=== PATIENT | male | born 1960 | race Two or more races ===

== ENCOUNTER 2024-08-10 22:24 | Inpatient (IN) | payer OTHER, MEDICAID ==
[~2024-08-10] VITALS: Ht 182.9 cm; Wt 90.1 kg
[~2024-08-10 22:24] MED LIST: AMLO1TAB23 PO; ASPI325T6 PO; ATOR80TA PO; CLON0.1T PO; CLOP75TA70 PO; HYDR25TA88 PO; LISI40TA16 PO; OMEP-448 PO
[2024-08-10 23:03] LABS: Basophils # (auto) 0 10 ^3/uL (0-0.2); Basophils % (auto) 0.6 % (0.0-2.0); Eosinophils # (auto) 0.1 10 ^3/uL (0-0.8); Eosinophils % (auto) 1.6 % (0.0-7.0); Hematocrit 36.2 % (41.0-53.0); Hemoglobin 12.1 g/dL (13.5-17.5); Lymphocytes # (auto) 1.9 10 ^3/uL (0.4-5.4); Lymphocytes % (auto) 28.4 % (10.0-50.0); Mean Corpuscular Hemoglobin 29.5 pg (28.0-32.0); Mean Corpuscular Hgb Conc. 33.4 g/dL (32.0-36.0); Mean Corpuscular Volume 88.5 fL (80.0-100.0); Monocytes # (auto) 0.4 10 ^3/uL (0-1.3); Monocytes % (auto) 6.8 % (0.0-12.0); Neutrophils # (auto) 4.1 10 ^3/uL (1.6-8.6); Neutrophils % (auto) 62.6 % (37.0-80.0); Nucleated Red Blood Cells % 0.2 %; Platelet Count (auto) 208 10^3/uL (140-450); Red Blood Cells 4.09 10^6/uL (4.5-5.90); Red Cell Distribution Width 14.5 % (11.8-14.3); White Blood Cell 6.6 10^3/uL (4.4-10.8)
[2024-08-10 23:20] LABS: Alanine Aminotransferase 23 U/L (7-40); Albumin 4.2 g/dL (3.2-4.8); Alkaline Phosphatase 92 U/L (46-116); Anion Gap 8 (5-15); Aspartate Aminotransferase 19 U/L (13-40); Calcium 9.4 mg/dL (8.7-10.4); Carbon Dioxide 22 mmol/L (20-30); Chloride 104 mmol/L (98-107); Glucose 309 mg/dL (74-106); Potassium 3.7 mmol/L (3.5-5.1); Sodium 134 mmol/L (136-145)
[2024-08-10 23:21] LABS: Bilirubin, Total 0.3 mg/dL (0.2-1.0); Total Protein 7.2 g/dL (5.7-8.2)
[2024-08-10 23:29] LABS: BUN/Creatinine Ratio 13.4 (10.0-20.0); Blood Urea Nitrogen 16 mg/dL (9-23)
[2024-08-10 23:47] VITALS: PULSE 72; RESP 14; O2SAT 94
[2024-08-11] VITALS (7 sets, daily range): BP systolic 168–184; BP diastolic 76–101; PULSE 58–86; RESP 14–20; TEMP 97.8–98.1; O2SAT 96–98
[2024-08-11] MEDS: InsuLIN REG 1unit/0.01ml Soln (100units/ml) IV ONE (00:23)
[2024-08-11] MEDS: NITROGLYCERIN 2% OINT 1GM PKG TD ONE (02:15)
[2024-08-11] MEDS ORDERED: MORPHINE SULFATE INJ 2 MG/ml SYRG IV PRN (10:00)
[2024-08-11] MEDS ORDERED: DEXTROSE (50%) 50ML SYRG IV PRN (10:00)
[2024-08-11] MEDS ORDERED: NITROGLYCERIN 0.4 MG SL TAB SL PRN ×2 (10:00)
[2024-08-11] MEDS ORDERED: ACETAMINOPHEN 325 MG TAB PO PRN (10:00)
[2024-08-11] MEDS ORDERED: ONDANSETRON HCL 4 MG/2 ML VIAL IV PRN (10:00)
[2024-08-11 11:18] LABS: INR 1.05 (0.9-1.15); Prothrombin Time 11.1 sec (9.3-11.8)
[2024-08-11] MEDS: InsuLIN REG 1unit/0.01ml Soln (100units/ml) SC SCH (11:41)
[2024-08-11] MEDS: ACCU-CHEK COMFORT CURVE STRIP VI SCH (11:43)
[2024-08-11] MEDS: DOCUSATE SOD 100 MG CAP PO SCH (11:45)
[2024-08-11] MEDS: ASPirin 81 mg TAB PO SCH (11:45)
[2024-08-11] MEDS: METOPROLOL TARTRATE 25 MG TAB PO SCH (12:55)
[2024-08-11] MEDS: hydrALAZINE HCL 20 MG/ML VL IV ONE (15:01)
[2024-08-11] MEDS ORDERED: METF-370 PO (17:55)
[2024-08-11] MEDS ORDERED: AMLO1TAB22 PO (17:55)
[2024-08-11] MEDS: ATORVASTATIN 20 MG TAB PO SCH (21:10)
[2024-08-11] MEDS: ENOXAPARIN SOD 120 MG/0.8 ML SYRINGE SC SCH (21:15)
[2024-08-12] VITALS (7 sets, daily range): BP systolic 138–178; BP diastolic 74–88; PULSE 53–97; RESP 16–20; TEMP 97.7–98.9; O2SAT 96–99
[2024-08-12] MEDS: LISINOPRIL 20 MG TAB PO ONE (01:04)
[2024-08-12 07:00] LABS: Basophils # (auto) 0.1 10 ^3/uL (0-0.2); Basophils % (auto) 0.7 % (0.0-2.0); Eosinophils # (auto) 0.1 10 ^3/uL (0-0.8); Eosinophils % (auto) 1.8 % (0.0-7.0); Hematocrit 40.4 % (41.0-53.0); Hemoglobin 13.5 g/dL (13.5-17.5); Lymphocytes # (auto) 2.4 10 ^3/uL (0.4-5.4); Lymphocytes % (auto) 34.2 % (10.0-50.0); Mean Corpuscular Hemoglobin 29.1 pg (28.0-32.0); Mean Corpuscular Hgb Conc. 33.4 g/dL (32.0-36.0); Mean Corpuscular Volume 87.1 fL (80.0-100.0); Monocytes # (auto) 0.5 10 ^3/uL (0-1.3); Monocytes % (auto) 7.3 % (0.0-12.0); Platelet Count (auto) 244 10^3/uL (140-450); Red Blood Cells 4.63 10^6/uL (4.5-5.90); Red Cell Distribution Width 14.3 % (11.8-14.3); White Blood Cell 7.2 10^3/uL (4.4-10.8)
[2024-08-12 07:15] LABS: Alanine Aminotransferase 28 U/L (7-40); Albumin 4.4 g/dL (3.2-4.8); Alkaline Phosphatase 75 U/L (46-116); Anion Gap 12 (5-15); Aspartate Aminotransferase 17 U/L (13-40); BUN/Creatinine Ratio 11.6 (10.0-20.0); Blood Urea Nitrogen 14 mg/dL (9-23); Calcium 9.9 mg/dL (8.7-10.4); Carbon Dioxide 19 mmol/L (20-30); Chloride 104 mmol/L (98-107); Cholesterol 154 mg/dL (< 200); HDL Cholesterol 31 mg/dL (40-59); LDL Cholesterol 100 mg/dL (< 100); Potassium 4.2 mmol/L (3.5-5.1); Sodium 135 mmol/L (136-145); Triglycerides 152 mg/dL (< 150)
[2024-08-12 07:16] LABS: Bilirubin, Total 0.6 mg/dL (0.2-1.0); Total Protein 7.4 g/dL (5.7-8.2)
[2024-08-12 07:34] LABS: Glucose 190 mg/dL (74-106)
[2024-08-12] MEDS: cloNIDine HCL 0.1 MG TAB PO SCH (09:25)
[2024-08-12] MEDS: amLODIPine BESYLATE 5 MG TAB PO SCH (09:25)
[2024-08-12] MEDS: METOPROLOL TARTRATE 25 MG TAB PO SCH (12:55)
[2024-08-13] VITALS (8 sets, daily range): BP systolic 116–163; BP diastolic 46–92; PULSE 58–92; RESP 16–20; TEMP 97.6–98.8; O2SAT 97–99
[2024-08-13] MEDS: LISINOPRIL 20 MG TAB PO SCH (10:42)
[2024-08-14] VITALS (7 sets, daily range): BP systolic 130–159; BP diastolic 58–87; PULSE 56–61; RESP 18–20; TEMP 97.2–98.6; O2SAT 95–99
[2024-08-14] MEDS: LISINOPRIL 20 MG TAB PO ONE (08:07)
[2024-08-14] MEDS: ADENOSINE 82 MG in GIVE UN-DILUTED 0 ML IV STA (09:48)
[2024-08-15 01:00] VITALS: BP 145/58; PULSE 52; RESP 18; TEMP 98; O2SAT 99
[2024-08-15 08:00] VITALS: PULSE 52; RESP 16; O2SAT 99
[2024-08-15 09:00] VITALS: BP 169/84; PULSE 63; RESP 16; TEMP 98; O2SAT 99
[2024-08-15 13:00] VITALS: BP 124/70; PULSE 53; RESP 20; TEMP 97.7; O2SAT 98
== END 2024-08-15 13:26 | disposition home or self-care (01) | DRG 313 ==
LOC: ER 22:24 → EDBD 22:24 → TELE 08-11 09:56 → TELE-WESTW 08-11 14:07
PROVIDERS: ADMIT Nurse Practitioner Family; ATTEND Family Medicine
DX: R07.89 Other chest pain (principal); I10 Essential (primary) hypertension; E78.5 Hyperlipidemia, unspecified; I65.23 Occlusion and stenosis of bilateral carotid arteries; B18.2 Chronic viral hepatitis C; F17.200 Nicotine dependence, unspecified, uncomplicated; E11.9 Type 2 diabetes mellitus without complications; I25.9 Chronic ischemic heart disease, unspecified; Z90.49 Acquired absence of other specified parts of digestive tract; Z82.49 Family history of ischemic heart disease and other diseases of the circulatory system
CPT/HCPCS: 36415; 80053; 80061; 82962; 83036; 83880; 84484; 85025; 85379; 85610; 93005; 93017; 93306; 99291; G0378; J0153; J1815